=== PATIENT | male | born 1980 | race Caucasian/White ===

== ENCOUNTER 2021-11-25 01:03 | Emergency (ER) | payer OTHER ==
[~2021-11-25] VITALS: Ht 180.3 cm; Wt 83.9 kg
[2021-11-25] MEDS ORDERED: AUGMENTIN 875-875 MG PO (03:32)
== END 2021-11-25 04:17 | disposition home or self-care (01) ==
LOC: ED 01:03
DX: H66.93 Otitis media, unspecified, bilateral (principal); J02.9 Acute pharyngitis, unspecified

== ENCOUNTER → 2022-03-19 | Outpatient (CLI) | payer OTHER ==
[~2022-03-19] MED LIST: AUGMENTIN 875-875 MG PO
== END ==
LOC: CT 13:54
PROVIDERS: ATTEND Nurse Practitioner Family
DX: R63.1 Polydipsia (principal); R53.83 Other fatigue; R51.9 Headache, unspecified; R35.89 Other polyuria